=== PATIENT | male | born 1965 | race Caucasian/White ===

== ENCOUNTER 2017-11-15 15:57 | Emergency (ER) | payer BC ==
[~2017-11-15] VITALS: Ht 177.8 cm; Wt 93.3 kg
[~2017-11-15 15:57] MED LIST: CIPRO500 MG PO; DAILY VITAMIN1 EAC8 PO; DILAUDID2 MG PO; FLOMAX0.4 MG PO; TORADOL10 MG PO
[2017-11-15 16:34] LABS: HEMATOCRIT 40.8 % (38.0-50.0); HEMOGLOBIN 14.2 G/DL (12.5-16.6); MCH 30.1 PG (29.0-34.0); MCHC 34.8 G/DL (30.0-36.0); MCV 86.4 FL (86-99); PLATELET COUNT 280 K/uL (156-360); RBC DIS.WIDTH-CV 11.9 % (11.8-14.6); RBC DIS.WIDTH-SD 37.8 % (39-53); RED BLOOD COUNT 4.72 M/uL (4.00-5.50)
[2017-11-15 16:50] LABS: CHLORIDE 105 mEq/L (99-109); POTASSIUM 4.5 mEq/L (3.7-5.4); SODIUM 138 mEq/L (136-147)
[2017-11-15 16:52] LABS: GLUCOSE 107 mg/dL (70-99)
[2017-11-15 16:56] LABS: CREATININE 0.9 mg/dL (0.6-1.3); GFR ESTIMATE (CALCULATED) > 59 mL/min/ (58.99-99999)
[2017-11-15 16:57] LABS: UREA NITROGEN (BUN) 9 mg/dL (9-23)
[2017-11-15 17:38] LABS: APPEARANCE CLEAR ((CLEAR)); BILIRUBIN NEGATIVE; BLOOD MODERATE; COLOR YELLOW ((YELLOW)); GLUCOSE (STRIP) NEGATIVE; KETONES NEGATIVE; LEUKOCYTES NEGATIVE; NITRITE NEGATIVE; PROTEIN (STRIP) NEGATIVE; SPECIFIC GRAVITY 1.014 (1.000-1.030); UROBILINOGEN 0.2 MG/DL (0.2-1.0)
[2017-11-15 17:41] LABS: BACTERIA NONE SEEN /HPF; EPITHELIAL CELLS RARE /HPF; MUCUS TRACE /LPF; RED BLOOD CELLS TNTC /HPF (0-5); UCUL ADDED? YES; WHITE BLOOD CELLS 0-5 /HPF (0-5)
[2017-11-15 18:14] LABS: ALBUMIN 4.3 g/dL (3.2-4.8)
[2017-11-15 18:17] LABS: TOTAL PROTEIN 7.2 g/dL (6.4-8.3)
[2017-11-15 18:19] LABS: TOTAL BILIRUBIN 0.2 mg/dL (0.0-1.0)
[2017-11-15 18:20] LABS: ALKALINE PHOSPHATASE 107 IU/L (3-129)
[2017-11-15 18:22] LABS: AST (GOT) 24 IU/L (2-34); DIRECT BILIRUBIN 0.1 mg/dL (0.0-0.3)
[2017-11-15 18:23] LABS: ALT (GPT) 32 IU/L (3-49); LIPASE 19 U/L (1.0-51.0)
[2017-11-15] MEDS ORDERED: FLOMAX0.4 MG PO (18:55)
[2017-11-15] MEDS ORDERED: ZOFRAN ODT8 MG PO (18:55)
[2017-11-15] MEDS ORDERED: MOTRIN800 MG PO (18:55)
[2017-11-15] MEDS ORDERED: NORCO 7.5/321 TABLET PO (18:55)
[2017-11-15] MEDS ORDERED: PYRIDIUM200 MG PO (19:07)
[2017-11-15 19:22] VITALS: BP 151/86
== END 2017-11-15 19:23 | disposition home or self-care (01) ==
LOC: EME 15:57
PROVIDERS: Physician Assistant
DX: N13.2 Hydronephrosis with renal and ureteral calculous obstruction (principal); R03.0 Elevated blood-pressure reading, without diagnosis of hypertension; K57.30 Diverticulosis of large intestine without perforation or abscess without bleeding; R19.7 Diarrhea, unspecified; Z87.442 Personal history of urinary calculi
CPT/HCPCS: 74176; 80048; 80076; 81003; 82365 90; 83690; 85027; 87086; J1885